=== PATIENT | male | born 1955 | race Caucasian/White ===

== ENCOUNTER 2017-10-14 15:06 | Emergency (ER) | payer OTHER ==
[~2017-10-14] VITALS: Ht 182.9 cm; Wt 71.6 kg
[2017-10-14 15:17] VITALS: BP 113/65; PULSE 96; RESP 16; TEMP 100.1; O2SAT 96
--- NOTE | 2017-10-14 15:29 | PD ---
HPI Chief Complaint: Cold / Flu Symptoms Time Seen by Provider: 15:23 Travel History International Travel<30 days: No Contact w/Intl Traveler<30days: No Traveled to known affect area: No History of Present Illness HPI 62-year-old male presents for evaluation. For 4 days he has had myalgias, chills, sore throat, slight cough. Symptoms are moderate, unrelieved with ibuprofen [id number] cough and cold medications. Denies abdominal pain, nausea or vomiting. No sick contacts. No recent travel. No other complaints at this time. [facility] Social History Alcohol Use: No Tobacco Use: No Allergies-Medications (Allergen,Severity, Reaction): Coded Allergies: No Known Allergies (Verified Allergy, Unknown, 10/14/17) Reported Meds & Prescriptions Reported Meds & Active Scripts Active No Active Prescriptions or Reported Medications Review of Systems Except as stated in HPI: all other systems reviewed are Neg Physical Exam Narrative GENERAL: Well-developed well-nourished male in no acute distress SKIN: Warm and dry. HEAD: Atraumatic. Normocephalic. EYES: Pupils equal and round. No scleral icterus. No injection or drainage. ENT: No nasal bleeding or discharge. Mucous membranes pink and moist. Oral pharyngeal erythema without exudate. NECK: Trachea midline. No JVD. No lymphadenopathy. Neck supple full range of motion. CARDIOVASCULAR: Regular rate and rhythm. No murmur appreciated. RESPIRATORY: No accessory muscle use. Clear to auscultation. Breath sounds equal bilaterally. No crackles no wheezing or rhonchi GASTROINTESTINAL: Abdomen soft, non-tender, nondistended. Hepatic and splenic margins not palpable. MUSCULOSKELETAL: No obvious deformities. No clubbing. No cyanosis. No edema. NEUROLOGICAL: Awake and alert. No obvious cranial nerve deficits. Motor grossly within normal limits. Normal speech. PSYCHIATRIC: Appropriate mood and affect; insight and judgment normal. Data Data Last Documented VS Vital Signs Date Time Temp Pulse Resp B/P (MAP) Pulse Ox O2 Delivery O2 Flow Rate FiO2 10/14/17 15:26 16 97 Room Air 10/14/17 15:17 100.1 96 113/65 (81) Orders Orders Group A Rapid Strep Screen (10/14/17 15:27) Influenzae A/B Antigen (10/14/17 15:27) Ibuprofen (Motrin) (10/14/17 15:30) Strep Culture (Group A) (10/14/17 15:46) Urinalysis - C+S If Indicated (10/14/17 16:18) Urine Culture (10/14/17 16:30) Ed Discharge Order (10/14/17 17:07) Labs Laboratory Tests Test 10/14/17 16:30 Urine Collection Type CLEAN CATCH Urine Color YELLOW Urine Turbidity CLEAR Urine pH 5.5 Urine Specific [place] 1.028 Urine Protein 30 mg/dL Urine Glucose (UA) NEG mg/dL Urine Ketones 40 mg/dL Urine Occult Blood NEG Urine Nitrite NEG Urine Bilirubin NEG Urine Leukocyte Esterase NEG Urine WBC 3-5 /hpf Urine WBC Clumps OCC Urine Squamous Epithelial Cells 0-5 /hpf Urine White Blood Cell Casts 10-15 /lpf Microscopic Urinalysis Comment CULTURE INDICATED Urine Collection Time 16:30 [facility] Medical Decision Making Medical Screen Exam Complete: Yes Emergency Medical Condition: Yes Medical Record Reviewed: Yes Differential Diagnosis Influenza, pharyngitis, peritonsillar abscess, retropharyngeal abscess, pneumonia, bronchitis, UTI Narrative Course 62-year-old male with sore throat, cough, myalgias and fevers for 4 days. He reports that he has had a little bit more consistent pain in his right flank region and is concerned that he could have a urinary infection along with his sore throat and respiratory symptoms. The patient was given antipyretic medication here. An influenza antigen and rapid strep screen performed and they are both negative. Despite the negative influenza antigen his symptoms are most consistent with influenza. Supportive care measures were discussed with the patient. He is stable for discharge. Diagnosis Primary Impression: Viral syndrome Additional Instructions: Stay well hydrated well-nourished, get plenty of rest. Tylenol and Motrin for pain and fever per dosing instructions on the bottle. Follow-up with primary care physician as needed and return for any acutely new or worsening symptoms. Med/Other Pt SpecificInfo: No Change to Meds Scripts No Active Prescriptions or Reported Meds Disposition: 01 DISCHARGE HOME Condition: Stable Evert Moreno Oct 14, 2017 15:29
[2017-10-14] MEDS ORDERED: IBUPROFEN 800 MG TAB PO ONE (15:30)
[2017-10-14 16:34] LABS: BILIRUBIN, URINE NEG (NEG); BLOOD, URINE NEG (NEG); GLUCOSE,URINE NEG (NEG); KETONE, URINE 40 mg/dL (NEG); NITRITE,URINE NEG (NEG); PH, URINE 5.5 (5.0-8.5); URINE LEUKOCYTE ESTERASE NEG (NEG)
[2017-10-14 16:47] LABS: URINE COLOR YELLOW (YELLW/STRAW)
[2017-10-14 16:55] LABS: SQUAMOUS EPITHELIAL CELL URINE 0-5 /hpf (0-5); WHITE BLOOD CELL CLUMPS OCC
== END 2017-10-14 17:28 | disposition home or self-care (01) ==
LOC: PHEFT 15:06
DX: B34.9 Viral infection, unspecified (principal)
CPT/HCPCS: 81001; 87081; 87086; 87804; 87880; 99283